=== PATIENT | female | born 2005 | race Caucasian/White ===

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

== ENCOUNTER 2024-03-07 15:31 | Emergency (ER) | payer OTHER ==
[~2024-03-07] VITALS: Ht 177.8 cm; Wt 72.6 kg
[2024-03-07] MEDS ORDERED: Metoclopramide Hydrochloride 10 MG/2 ML VIAL IV ONE (17:10)
[2024-03-07] MEDS ORDERED: SODIUM CHLORIDE 0.9% 1,000 ML IV ONE (17:10)
[2024-03-07 17:30] LABS: BASO % 0.3 % (0.0-1.0); EOS # 0.1 10*3/uL (0.0-0.4); EOS % 0.7 % (1.0-4.0); HEMATOCRIT 44.1 % (37.0-47.0); MEAN CELL VOLUME 90.4 fl (81.0-99.0); MEAN CORPUSCULAR HGB 30.1 pg (27.0-31.0); MEAN CORPUSCULAR HGB CONC 33.3 g/dl (33.0-37.0); MEAN PLATELET VOLUME 9.5 fl (9.6-12.3); MONO # 0.7 10*3/uL (0.1-1.0); MONO % 4.7 % (3.0-9.0); NEUT # 13.2 10*3/uL (2.3-7.9); PLATELET COUNT AUTOMATED 165 10*3/uL (130-400); RED BLOOD COUNT 4.88 10*6/uL (4.10-5.10); RED CELL DISTRI WIDTH 12.2 % (0-14.5); WHITE BLOOD COUNT 14.9 10*3/uL (4.8-10.8)
[2024-03-07 17:53] LABS: ALKALINE PHOSPHATASE 67 U/L (46-116); BUN 10 mg/dl (9-23); CHLORIDE 110 mmol/L (98-107); LIPASE 39 U/L (12-53); POTASSIUM 3.9 mmol/L (3.4-5.1); SGPT/ALT 17 U/L (5-49); TOTAL PROTEIN 7.1 gm/dL (6.0-8.0)
[2024-03-07 17:57] LABS: BILIRUBIN Negative (Negative); BLOOD 3+ (Negative); CLARITY Clear (Clear); COLOR Yellow (Yellow); GLUCOSE Negative (Negative); KETONE 3+ (Negative); LEUKO ESTERASE Trace (Negative); NITRITE Negative (Negative); PH 5.5 (4.5-8.0); SPECIFIC GRAVITY >= 1.030 (1.001-1.030); UROBILINOGEN 0.2 E.U./dl (0.0-1.0)
[2024-03-07 18:06] LABS: BACTERIA 1+; MUCOUS 1+
[2024-03-07] MEDS ORDERED: Ondansetron4 MG PO (18:16)
[2024-03-07] MEDS ORDERED: Ondansetron 4 MG 2 TAB ED PACK PO SCH (18:20)
== END 2024-03-07 18:42 | disposition home or self-care (01) ==
LOC: ED 15:31
PROVIDERS: Nurse Practitioner Family
DX: K52.9 Noninfective gastroenteritis and colitis, unspecified (principal); R11.2 Nausea with vomiting, unspecified; R10.12 Left upper quadrant pain; R10.11 Right upper quadrant pain

== ENCOUNTER 2024-06-23 18:19 | Emergency (ER) | payer OTHER ==
[~2024-06-23] VITALS: Ht 177.8 cm
[~2024-06-23 18:19] MED LIST changes: +Ondansetron4 MG PO
== END 2024-06-23 21:09 | disposition home or self-care (01) ==
LOC: ED 18:19
DX: R10.10 Upper abdominal pain, unspecified (principal); R10.30 Lower abdominal pain, unspecified; Z79.899 Other long term (current) drug therapy; Z98.890 Other specified postprocedural states

== ENCOUNTER 2024-08-17 16:43 | Emergency (ER) | payer OTHER ==
[~2024-08-17] VITALS: Ht 175.2 cm; Wt 74.8 kg
[2024-08-17] MEDS ORDERED: Motrin,Rufen800 MG PO (17:09)
[2024-08-17] MEDS ORDERED: Ciprofloxacin Hydrochloride 0.3% OPHTHLAMIC BOTTLE OT ONE (17:10)
[2024-08-17] MEDS ORDERED: IBUPROFEN 600 MG TAB PO ONE (17:10)
== END 2024-08-17 17:27 | disposition home or self-care (01) ==
LOC: ED 16:43
DX: H60.91 Unspecified otitis externa, right ear (principal)

== ENCOUNTER 2024-12-08 11:54 | Emergency (ER) | payer SELFPAY ==
[~2024-12-08] VITALS: Ht 172.7 cm; Wt 74.8 kg
[~2024-12-08 11:54] MED LIST changes: +Motrin,Rufen800 MG PO
[2024-12-08] MEDS ORDERED: Nizoral 2%15 GM T (12:57)
== END 2024-12-08 13:14 | disposition home or self-care (01) ==
LOC: ED 11:54
DX: S40.861A Insect bite (nonvenomous) of right upper arm, initial encounter (principal); B36.0 Pityriasis versicolor; F32.A Depression, unspecified; Z87.440 Personal history of urinary (tract) infections; W57.XXXA Bitten or stung by nonvenomous insect and other nonvenomous arthropods, initial encounter; Y93.89 Activity, other specified; Y92.89 Other specified places as the place of occurrence of the external cause; Y99.8 Other external cause status